=== PATIENT | female | born 1945 | race Caucasian/White ===

== ENCOUNTER 2020-10-28 07:37 | Outpatient (REF) | payer MEDICARE, OTHER, SELFPAY ==
--- NOTE | ~2020-10-28 | CT_ITS ---
EXAMINATION: CT CHEST WITHOUT CONTRAST CLINICAL INFORMATION: Other nonspecific abnormal finding lung field COMPARISON: None TECHNIQUE: Multidetector volumetric CT imaging of the chest was done. Axial MIP volume rendering provided. Sagittal and coronal reformatted images were obtained. This CT examination was performed using dose optimization techniques as appropriate, variously including the following: *Automated exposure control *Adjustment of mA and/or kV according to patient size (this includes techniques or standardized protocols for targeted exams where dose is matched to indication/reason for exam; i.e. extremities or head) *Use of iterative reconstruction technique DLP: 134 mGy-cm FINDINGS: LUNGS: There are multiple small bilateral upper lobe nodules. There are 2 mm right upper lobe nodule axial image 69 series 5 and 82 series 5. There is a 4 mm right upper lobe nodule axial image 100 series 5. There is a 3 mm right upper lobe nodule axial image 104 series 5. There is a 4 mm right upper lobe nodule axial image 118 series 5. There is a 2 mm superior segment right lower lobe nodule axial image 191 series 5. There is a 2 x 3 mm peripheral or subpleural right upper lobe nodule axial image 261 series 5. There is a 2 mm peripheral right lower lobe nodule axial image 324 series 5. There is a 2 mm left upper lobe nodule axial image 98 series 5. There is a 3 mm superior segment left lower lobe nodule axial image 219 series 5. There is a 2 mm left lower lobe nodule axial image 281 series 5. There is a 3 mm peripheral or subpleural left lower lobe nodule axial image 291 series 5. There is a 2 mm left lower lobe nodule axial image 296 series 5. There is a 4 mm left lower lobe nodule axial image 296 series 5. There is a 3 mm peripheral or subpleural semisolid left lower lobe nodule axial image 263 series 5. There is a 1 to 2 mm calcified left lower lobe peripheral or subpleural nodule axial image 525 series 5. MEDIASTINUM: There are no enlarged hilar or mediastinal lymph nodes. There is mild coronary artery calcification. The heart does not appear enlarged. There is no pericardial effusion. The thoracic aorta is normal in caliber. PLEURA: There is no pleural effusion. No pleural mass or thickening. AXILLA: No lymphadenopathy. UPPER ABDOMEN: The gallbladder is been removed. OSSEOUS STRUCTURES: There are degenerative changes of the spine. CT/CT chest wo con IMPRESSION: Small bilateral pulmonary nodules, largest measuring 4 mm in the right upper and left lower lobes. Comparison with old outside exams if available is recommended. If no old exams are available for comparison, follow-up as described Yina: Low risk, no chest CT follow-up needed and high risk, optional chest CT follow-up in one year.
== END 2020-10-28 07:38 | disposition home or self-care (01) ==
LOC: HO.CT 07:37
PROVIDERS: PCP Internal Medicine; Visit Provider Hospitalist
DX: R91.8 Other nonspecific abnormal finding of lung field (principal)
CPT/HCPCS: 71250

== ENCOUNTER → 2020-11-05 08:15 | Outpatient (BNVA) | payer MEDICARE, OTHER, SELFPAY | PROVIDERS: PCP Internal Medicine; Visit Provider Hospitalist | DX: R91.8 Other nonspecific abnormal finding of lung field (principal); J30.9 Allergic rhinitis, unspecified; R05 Cough; Z79.899 Other long term (current) drug therapy | CPT/HCPCS: 99212 ==

== ENCOUNTER 2021-11-10 12:42 | Outpatient (REF) | payer MEDICARE, OTHER, SELFPAY ==
--- NOTE | ~2021-11-10 | CT_ITS ---
EXAMINATION: CT CHEST WITHOUT CONTRAST CLINICAL INFORMATION: Follow-up pulmonary nodules COMPARISON: Previous chest CT October 2020 TECHNIQUE: Multidetector volumetric CT imaging of the chest was done. Axial MIP volume rendering provided. Sagittal and coronal reformatted images were obtained. This CT examination was performed using dose optimization techniques as appropriate, variously including the following: *Automated exposure control *Adjustment of mA and/or kV according to patient size (this includes techniques or standardized protocols for targeted exams where dose is matched to indication/reason for exam; i.e. extremities or head) *Use of iterative reconstruction technique DLP: 139 mGy-cm FINDINGS: LUNGS: There are multiple pulmonary nodules that are stable. Largest pulmonary nodule measures 4 mm in the right upper lobe axial image 80 and 98 series 7. No new pulmonary nodule is seen. MEDIASTINUM: There is coronary artery calcification. The mediastinum is otherwise normal. PLEURA: There is no pleural effusion. No pleural mass or thickening. AXILLA: No lymphadenopathy. UPPER ABDOMEN: The gallbladder has been removed. OSSEOUS STRUCTURES: There are degenerative changes of the spine. CT/CT chest wo con IMPRESSION: Stable pulmonary nodules from October 2020 exam. Fleischner guidelines were followed.
== END 2021-11-10 12:43 | disposition home or self-care (01) ==
LOC: HO.CT 12:42
PROVIDERS: Visit Provider Hospitalist
DX: R91.8 Other nonspecific abnormal finding of lung field (principal)
CPT/HCPCS: 71250

== ENCOUNTER → 2021-11-18 09:25 | Outpatient (BNVA) | payer MEDICARE, OTHER, SELFPAY | PROVIDERS: PCP Internal Medicine; Visit Provider Hospitalist | DX: R91.8 Other nonspecific abnormal finding of lung field (principal); J30.9 Allergic rhinitis, unspecified; R05.9 Cough, unspecified; Z57.4 Occupational exposure to toxic agents in agriculture; Z88.8 Allergy status to other drugs, medicaments and biological substances | CPT/HCPCS: 99212 ==